=== PATIENT | female | born 1955 | race Hispanic/Latino ===

== ENCOUNTER 2016-09-27 12:01 | Emergency (ER) | payer BC ==
[2016-09-27 12:10] VITALS: BP 147/84; PULSE 90; RESP 16; TEMP 97.5; O2SAT 97
[2016-09-27] MEDS ORDERED: TDAP Vaccine 0.5 mL Syr IM ONE (12:24)
--- NOTE | 2016-09-27 12:32 | ED PDOC ---
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 Patient reports slipping on rug and and on the way down, hit the edge of a vanity. She denies any headache or loss of consciousness. Patient was in usual state of health prior to the fall. Patient denies any focal weakness, nausea, vomiting, dizziness, shortness of breath, fever, or any other complaints at this time. She takes no blood thinners. Patient last tetanus unknown. PMD: in [facility] Time/Duration: 1 hour Symptom Onset: Sudden Symptom Course: Unchanged Activities at Onset: Rest Context: Home Associated Symptoms (Text): none Past Medical History - Provider Review Nursing Documentation Reviewed: Yes - Cardiac Hx Cardiac Disorders: No - Pulmonary Hx Asthma: Yes - Neurological Hx Neurological Disorder: No - HEENT Hx HEENT Disorder: No - Renal Hx Renal Disorder: No - Endocrine/Metabolic Hx Endocrine Disorders: No - Hematological/Oncological Hx Blood Disorders: No - Integumentary Hx Dermatological Disorder: No - Musculoskeletal/Rheumatological Hx Musculoskeletal Disorders: No - Gastrointestinal Hx Gastrointestinal Disorders: No - Genitourinary/Gynecological Hx Genitourinary Disorders: No - Psychiatric Hx Psychophysiologic Disorder: No Hx Substance Use: No - Surgical History Hx Orthopedic Surgery: Yes (R HIP) Family/Social History - Physician Review Nursing Documentation Reviewed: Yes Family/Social History: No Known Family HX Smoking Status: Never Smoked Hx Alcohol Use: Yes Frequency of alcohol use: Socially Hx Substance Use: No Allergies/Home Meds Allergies/Adverse Reactions: Allergies No Known Allergies Allergy (Verified 09/27/16 12:06) Home Medications: Home Meds Medication Instructions Recorded Confirmed Unobtainable 09/27/16 09/27/16 Review of Systems - Physician Review All systems were reviewed & negative as marked: Yes - Review of Systems Constitutional: Normal Eyes: absent: Vision Changes Respiratory: absent: SOB Cardiovascular: absent: Chest Pain, Syncope Gastrointestinal: absent: Abdominal Pain, Nausea, Vomiting Neurological: absent: Headache, Dizziness, Focal Weakness, Gait Changes Physical Exam Vital Signs Reviewed: Yes Vital Signs Temp Pulse Resp BP Pulse Ox 09/27/16 12:09 97.5 F L 90 16 147/84 97 Temperature: Afebrile Blood Pressure: Normal Pulse: Regular Respiratory Rate: Normal Appearance: Positive for: Well-Appearing, Non-Toxic, Comfortable Pain Distress: None Mental Status: Positive for: Alert and Oriented X 3 - Systems Exam Head: Present: Normocephalic, Laceration (3 cm L posterior parietal scalp) Pupils: Present: PERRL Extroacular Muscles: Present: EOMI Conjunctiva: Present: Normal Mouth: Present: Moist Mucous Membranes Pharnyx: Present: Normal. No: ERYTHEMA, EXUDATE Neck: Present: Normal Range of Motion Respiratory/Chest: Present: Clear to Auscultation, Good Air Exchange. No: Respiratory Distress, Accessory Muscle Use Cardiovascular: Present: Regular Rate and Rhythm, Normal S1, S2. No: Murmurs Back: Present: Normal Inspection Upper Extremity: Present: Normal Inspection. No: Cyanosis, Edema Lower Extremity: Present: Normal Inspection. No: Edema Neurological: Present: GCS=15, CN II-XII Intact, Speech Normal, Motor Func Grossly Intact, Normal Cerebellar Funct, Other (Gait includes limp, which is baseline) Skin: Present: Warm, Dry, Normal Color. 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 No headache or loss of consciousness. 60 y.o. female with scalp laceration from minor mechanical fall with otherwise normal exam and on no blood thinners, including asa. No indication for CT scan. Will update tetanus. Laceration Procedure Note: 1% lidocaine with epi used for local anesthesia. Wound irrigated under pressure with tap water. 9 xin placed for closure with good approximation. Patient tolerated procedure well. - Medication Orders Current Medication Orders: Discontinued Medications Tetanus/Reduced Diphtheria/Acell Pertussis (Boostrix Vaccine Inj) 0.5 ml IM .ONCE ONE Stop: 09/27/16 12:25 Last Admin: 09/27/16 12:38 Dose: 0.5 ml - Scribe Statement The provider has reviewed the documentation as recorded by the Christophe Persaud Provider Scribe Attestation: All medical record entries made by the Scribe were at my direction and personally dictated by me. I have reviewed the chart and agree that the record accurately reflects my personal performance of the history, physical exam, medical decision making, and the department course for this patient. I have also personally directed, reviewed, and agree with the discharge instructions and disposition. Disposition/Present on Arrival - Present on Arrival Any Indicators Present on Arrival: No History of DVT/PE: No History of Uncontrolled Diabetes: No Urinary Catheter: No History of Decub. Ulcer: No History Surgical Site Infection Following: None - Disposition Have Diagnosis and Disposition been Completed?: Yes Diagnosis: Scalp laceration Disposition: HOME/ ROUTINE Disposition Time: 12:35 Patient Plan: Discharge Condition: GOOD Discharge Instructions (ExitCare): Head Injury (ED), Staple Care (ED) Additional Instructions: Tylenol for headache. Suture removal in 10 days. Follow up with your primary care doctor in [facility]. Return to the emergency department if any new concerning symptoms. Referrals: Gisell Butler, [Primary Care Provider] - Follow up with primary
== END 2016-09-27 12:40 | disposition home or self-care (01) ==
LOC: ED 12:01
DX: S01.01XA Laceration without foreign body of scalp, initial encounter (principal); W01.0XXA Fall on same level from slipping, tripping and stumbling without subsequent striking against object, initial encounter; Z23 Encounter for immunization